=== PATIENT | male | born 1960 | race Caucasian/White ===

== ENCOUNTER → 2020-06-11 | Outpatient (CLI) | payer BC, OTHER ==
[~2020-06-11] MED LIST: ZITHROMAX250 MG PO
== END ==
LOC: KOH-I 14:37
DX: R51.9 Headache, unspecified (principal); J34.89 Other specified disorders of nose and nasal sinuses
CPT/HCPCS: 70450

== ENCOUNTER 2020-11-12 05:19 | Emergency (ER) | payer BC, OTHER ==
[2020-11-12 05:57] LABS: HEMOGLOBIN 14.3 gm/dl (14.0-17.5); RED BLOOD COUNT 4.42 M/UL (4.20-5.50); WHITE BLOOD COUNT 7.3 K/UL (4.5-11.0)
[2020-11-12 06:16] LABS: BUN/CREATININE RATIO 11 (0-10)
[2020-11-12] MEDS ORDERED: ZITHROMAX250 MG PO (09:33)
== END 2020-11-12 09:42 | disposition home or self-care (01) ==
LOC: ER1 05:19
PROVIDERS: Family Medicine
DX: R50.9 Fever, unspecified (principal); R05 Cough; R11.10 Vomiting, unspecified; Z20.822 Contact with and (suspected) exposure to COVID-19; K21.9 Gastro-esophageal reflux disease without esophagitis; I10 Essential (primary) hypertension; F17.200 Nicotine dependence, unspecified, uncomplicated; Z88.8 Allergy status to other drugs, medicaments and biological substances
CPT/HCPCS: 0240U; 71045; 80053; 81001; 83605; 85025; 99283

== ENCOUNTER → 2021-10-23 | Day surgery (SDC) | payer BC ==
[~2021-10-23] MED LIST changes: +ACCUPRIL40 MG PO; +ACID CONTROLLER20 MG PO; +CITALOPRAM HBR20 MG PO; +CLARITIN10 M2 PO; +FISH OIL 1,0001 EACH PO; +IBUPROFEN800 MG PO; +TYLENOL325 MG PO; +ZYLOPRIM 100 M100 MG PO
== END | disposition home or self-care (01) ==
LOC: OR 06:41
DX: Z12.11 Encounter for screening for malignant neoplasm of colon (principal); K64.0 First degree hemorrhoids; K64.1 Second degree hemorrhoids; I10 Essential (primary) hypertension; F17.210 Nicotine dependence, cigarettes, uncomplicated; J44.9 Chronic obstructive pulmonary disease, unspecified; M10.9 Gout, unspecified; E66.3 Overweight; Z68.25 Body mass index [BMI] 25.0-25.9, adult; Z86.010 Personal history of colon polyps; Z88.0 Allergy status to penicillin
CPT/HCPCS: J2704; J7040